=== PATIENT | male | born 1980 | race Caucasian/White ===

== ENCOUNTER 2017-06-28 00:44 | Inpatient (IN) | payer MEDICAID ==
--- NOTE | 2017-06-28 01:26 | ED Physician Chart ---
ED Chief Complaint/HPI - Patient Information Date Seen:: 06/28/17 Time Seen:: 01:00 Chief Complaint:: abd pain History of Present Illness:: 36 yr old male with epigastric pain moderate sharp sine yest no n,v,d,or fever no triggers or aggravating factors Allergies:: Allergies Allergy/AdvReac Type Severity Reaction Status Date / Time No Known Allergies Allergy Verified 06/28/17 00:58 Vitals:: Vital Signs - 8 hr 06/28/17 00:46 Temp 97.8 F HR 104 RR 18 BP 141/78 O2 Sat % 97 ED Review of Systems - Review of Systems General/Constitutional: No fever Skin: No skin lesions Head: No headache Eyes: No loss of vision ENT: No earache Neck: No neck pain Cardio Vascular: No chest pain Pulmonary: No SOB GI: No vomiting G/U: No dysuria Musculoskeletal: No muscle pain Endocrine: No polyuria Psychiatric: No prior psych history Hematopoietic: No bruising, No lymphadenopathy Allergic/Immuno: No urticaria Neurological: No syncope ED Past Medical History - Past Medical History Past Medical History: No significant medical hx Family Medical History - Family Member Mother History Unknown: Yes ED Physical Exam - Physical Examination General/Constitutional: Well-developed, well-nourished Head: Atraumatic Eyes: Lids, conjuctiva normal Skin: Nl inspection ENMT: External ears, nose nl Neck: Nontender Respiratory: Nl effort/Exclusion Cardio Vascular: RRR GI: No organomegaly : No CVA tenderness Extremities: No tenderness or effusion Neuro/Psych: Alert/oriented Misc: Normal back ED Assessment - Assessment General Assessment: abd pain ED Septic Shock - . Is Septic Shock (SBP<90, OR Lactate>4 mmol\L) present?: No - <6hrs of presentation: Vital Signs: Vital Signs - 8 hr 06/28/17 00:46 Temp 97.8 F HR 104 RR 18 BP 141/78 O2 Sat % 97 ED Reassessment (Disposition) - Reassessment Reassessment Condition:: Improved - Diagnosis Diagnosis:: abd pain - Patient Disposition Discharge/Transfer:: Home
[2017-06-28 01:44] LABS: % BASOPHILS 0.2 % (0.0-2.0); % EOSINOPHILS 2.7 % (0.0-5.0); % LYMPHOCYTES 20.3 % (20.0-50.0); % MONOCYTES 13.2 % (2.0-10.0); % NEUTROPHILS 63.6 % (40.0-80.0); EOSINOPHILE ABSOLUTE 0.2 Th/cmm (0.1-0.4); HEMATOCRIT 35.5 % (41.0-60); HEMOGLOBIN 12.1 gm/dL (12-16); LYMPHOCYTE ABSOLUTE 1.2 Th/cmm (1.5-3.0); MEAN CELL VOLUME 89.6 fl (80-99); MEAN CORPUSCULAR HEMOGLOBIN 30.5 pg (26.0-30.0); MEAN PLATELET VOLUME 7.8 fl; MONOCYTE ABSOLUTE 0.8 Th/cmm (0.3-1.0); NEUTROPHILE ABSOLUTE 3.6 Th/cmm (1.8-8.0); PLATELET COUNT 240 Th/cmm (150-400); RED BLOOD COUNT 3.97 Mil/cmm (4.30-5.70); RED CELL DISTRIBUTION WIDTH 13.9 % (11.5-20.0); WHITE BLOOD COUNT 5.8 Th/cmm (4.8-10.8)
[2017-06-28 02:01] LABS: ALB/GLOB RATIO 1.1 (1.0-1.8); ALBUMIN 3.6 gm/dL (4.2-5.5); ALKALINE PHOSPHATASE 114 U/L (34-104); ANION GAP 11.7 (7.0-16.0); BILIRUBIN,TOTAL 0.4 mg/dL (0.3-1.0); BUN - UREA NITROGEN 15 mg/dL (7-25); CALCIUM SERUM 9.1 mg/dL (8.6-10.3); CARBON DIOXIDE 20.4 mEq/L (21.0-31.0); CHLORIDE 103 mEq/L (98-107); GFR AFRICAN-AMERICAN > 60.0 ml/min (>90); GFR NON AFRICAN-AMERICAN > 60.0 ml/min; GLUCOSE 119 mg/dL (70-105); POTASSIUM SERUM 4.1 mEq/L (3.5-5.1); SGOT 45 U/L (13-39); SGPT/ALT 76 U/L (7-52); SODIUM SERUM 131 mEq/L (136-145); TOTAL PROTEIN,SERUM 6.9 gm/dL (6.0-8.3)
[2017-06-28 02:28] LABS: URINE MICROSCOPIC INDICATED? YES; URINE SOURCE CLEAN C
[2017-06-28 03:25] LABS: URINE BILIRUBIN NEGATIVE (NEGATIVE); URINE BLOOD NEGATIVE (NEGATIVE); URINE GLUCOSE (UA) NEGATIVE (NEGATIVE); URINE KETONE NEGATIVE (NEGATIVE); URINE LEUKOCYTE ESTERASE NEGATIVE (NEGATIVE); URINE NITRATE NEGATIVE (NEGATIVE); URINE PH 6.5 (4.6 - 8.0); URINE PROTEIN NEGATIVE (NEGATIVE); URINE UROBILINOGEN 0.2 E.U./dL (0.2 - 1.0)
[2017-06-28 03:33] LABS: URINE CLARITY CLEAR (CLEAR); URINE COLOR YELLOW
[2017-06-28 03:34] LABS: URINE BACTERIA NONE SEEN /hpf (NONE SEEN); URINE EPITHELIAL CELLS NONE SEEN /lpf (FEW); URINE RBC NONE SEEN /hpf (0-5); URINE WBC NONE SEEN /hpf (0-5)
[2017-06-28 04:47] LABS: AMYLASE SERUM 34 U/L (29-103); LIPASE 15 U/L (11-82)
[2017-06-28 05:00] LABS: ACETAMINOPHEN < 10.0 ug/mL (10.0-30.0)
[2017-06-28 05:36] LABS: AMPHETAMINE URINE NEGATIVE (NEGATIVE); BARBITURATES URINE NEGATIVE (NEGATIVE); BENZODIAZEPINES QUAL URINE NEGATIVE (NEGATIVE); CANNABINOID THC NEGATIVE (NEGATIVE); COCAINE METABOLITE QUAL URINE NEGATIVE (NEGATIVE); METHADONE URINE NEGATIVE (NEGATIVE); METHAMPHETAMINES QUAL URINE NEGATIVE (NEGATIVE); OPIATES (MORPHINE) QUAL. URINE NEGATIVE (NEGATIVE); PHENCYCLIDINE (PCP) URINE NEGATIVE (NEGATIVE); TRICYCLICS (TCA) QUAL. URINE POSITIVE (NEGATIVE)
--- NOTE | 2017-06-28 09:04 | Diagnostic Imaging Report ---
Exam: CT examination abdomen pelvis. HISTORY: Abdominal pain. Total DLP equals 708 CTDI equals 13.7 Findings: Multiple contiguous thin section of the abdomen pelvis obtained from lower thorax to pubic symphysis without the administration of oral or intravenous contrast material, no prior studies available comparison. The study demonstrates normal aeration of lung parenchyma the bases. There is evidence of previous cholecystectomy. The liver and spleen intact. The pancreas is normal. The kidneys demonstrate no evidence of obstructive uropathy or nephrolithiasis. Large amount of fecal content is noted throughout the colon. The appendix is normal. The renal bladder is intact. Bony structures demonstrate no evidence for lytic or blastic changes. IMPRESSION: Essentially unremarkable examination of the abdomen pelvis, large amount of fecal content.
--- NOTE | 2017-06-28 10:55 | History and Physical ---
History of Present Illness - HPI Chief Complaint: Abdominal pain and suicidal ideas HPI: Patient refer that few days ago started with abdominal pain and suicidal ideas, reason why he came to ER. Vital Signs: Last Vital Signs Temp 97.0 F 06/28/17 02:05 Pulse 84 06/28/17 05:50 Resp 16 06/28/17 05:50 BP 113/66 06/28/17 05:50 Pulse Ox 98 06/28/17 03:56 Past Medical History Cardiovascular: Report: No Pertinent Hx Pulmonary: Report: No Pertinent Hx METAL BUMPER: Report: Other (Depression) GI: Report: Other (Abdominal pain) Psych: Report: Anxiety, Depression Musculoskeletal: Report: No Pertinent Hx Rheumatologic: Report: No pertinent Hx Infectious Disease: Report: No Pertinent Hx Renal/: Report: No Pertinent Hx Endocrine: Report: Other (Hx of testicular Ca.) Dermatology: Report: No Pertinent Hx - Past Surgical History Past Surgical History: Other (Testicle romoval) Family Medical History - Family Member Mother History Unknown: Yes Social History Smoke: No Alcohol: None Drugs: None Lives: With Family Domestic Violence: Negative - Medications Home Medications: Home Medication Medication Instructions Recorded Type Bupropion HCl [Wellbutrin Xl*] 300 mg PO DAILY 06/28/17 History - Allergies Allergies/Adverse Reactions: Allergies Allergy/AdvReac Type Severity Reaction Status Date / Time No Known Allergies Allergy Verified 06/28/17 00:58 Review of Systems - Review of Systems Constitutional: Report: Weakness Eyes: Report: No Significant ENT: Report: No Significant Respiratory: Report: No Significant Cardiovascular: Report: No Significant Gastrointestinal: Report: Other (Abdominal pain) Genitourinary: Report: No Significant Musculoskeletal: Report: No Significant Skin: Report: No Significant Neurological: Report: Weakness, Other (Depress) Physical Exam - Physical Exam HEENT: Report: Ears Nose Throat within normal limits Neck: Report: Within normal limits Cardiovascular Systems: Report: Regular, Rate and Rhythm Respiratory: Report: Breath Sounds are within normal limits Abdomen: Report: Tender to palpation Back: Report: Inspection of back is within normal limits. Extremities: Report: Non-tender to palpation. Skin: Report: Color of skin is within normal limits, Warm, Dry Neuro/Psych: Report: Depressed affect - Lab Results All Lab Results last 24 hours: Laboratory Results - last 24 hr 06/28/17 Unknown Amylase 34 Lipase 15 - Assessment Assessment: Patient is awake, calm oriented, He refer suicidal ideas. DX: Abdominal pain, Suicidal ideas. - Plan Plan: Abdominal CT is normal, Labs are normal. Patient in protonix and pain control. Consult with Psychiatry requested. Will continue to monitor.
[2017-06-28] MEDS: Sodium Chloride 0.9% 1,000 ML IV SCH (12:43)
[2017-06-29 05:18] LABS: % BASOPHILS 0.7 % (0.0-2.0); % EOSINOPHILS 2.4 % (0.0-5.0); % LYMPHOCYTES 18.8 % (20.0-50.0); % MONOCYTES 11.5 % (2.0-10.0); % NEUTROPHILS 66.6 % (40.0-80.0); BASOPHILE ABSOLUTE 0.1 Th/cumm (0-0.2); EOSINOPHILE ABSOLUTE 0.2 Th/cmm (0.1-0.4); HEMATOCRIT 35.1 % (41.0-60); HEMOGLOBIN 11.9 gm/dL (12-16); LYMPHOCYTE ABSOLUTE 1.5 Th/cmm (1.5-3.0); MEAN CELL VOLUME 90.6 fl (80-99); MEAN CORPUSCULAR HEMOGLOBIN 30.7 pg (26.0-30.0); MEAN CORPUSCULAR HGB CONC 33.9 pg (28.0-36.0); MEAN PLATELET VOLUME 7.4 fl; MONOCYTE ABSOLUTE 0.9 Th/cmm (0.3-1.0); NEUTROPHILE ABSOLUTE 5.5 Th/cmm (1.8-8.0); PLATELET COUNT 280 Th/cmm (150-400); RED BLOOD COUNT 3.87 Mil/cmm (4.30-5.70); WHITE BLOOD COUNT 8.2 Th/cmm (4.8-10.8)
[2017-06-29 05:34] LABS: ALB/GLOB RATIO 1.1 (1.0-1.8); ALBUMIN 3.4 gm/dL (4.2-5.5); ALKALINE PHOSPHATASE 96 U/L (34-104); ANION GAP 9.9 (7.0-16.0); BILIRUBIN,TOTAL 0.4 mg/dL (0.3-1.0); BUN - UREA NITROGEN 15 mg/dL (7-25); CALCIUM SERUM 8.9 mg/dL (8.6-10.3); CARBON DIOXIDE 24.9 mEq/L (21.0-31.0); CHLORIDE 106 mEq/L (98-107); CREATININE - SERUM 1.1 mg/dL (0.7-1.3); GFR AFRICAN-AMERICAN > 60.0 ml/min (>90); GFR NON AFRICAN-AMERICAN > 60.0 ml/min; GLUCOSE 124 mg/dL (70-105); MAGNESIUM 2.2 mg/dL (1.9-2.7); POTASSIUM SERUM 3.8 mEq/L (3.5-5.1); SGOT 21 U/L (13-39); SGPT/ALT 53 U/L (7-52); SODIUM SERUM 137 mEq/L (136-145); TOTAL PROTEIN,SERUM 6.5 gm/dL (6.0-8.3)
--- NOTE | 2017-06-29 09:55 | General Progress Note ---
Subjective - Review of Systems Service Date: 06/29/17 Subjective: I feel the same Objective - Results Result Diagrams: 06/29/17 04:55 06/29/17 04:55 Recent Labs: Laboratory Last Values WBC 8.2 Th/cmm (4.8-10.8) 06/29/17 04:55 RBC 3.87 Mil/cmm (4.30-5.70) L 06/29/17 04:55 Hgb 11.9 gm/dL (12-16) L 06/29/17 04:55 Hct 35.1 % (41.0-60) L 06/29/17 04:55 MCV 90.6 fl (80-99) 06/29/17 04:55 MCH 30.7 pg (26.0-30.0) H 06/29/17 04:55 MCHC Differential 33.9 pg (28.0-36.0) 06/29/17 04:55 RDW 14.0 % (11.5-20.0) 06/29/17 04:55 Plt Count 280 Th/cmm (150-400) 06/29/17 04:55 MPV 7.4 fl 06/29/17 04:55 Neutrophils % 66.6 % (40.0-80.0) 06/29/17 04:55 Lymphocytes % 18.8 % (20.0-50.0) L 06/29/17 04:55 Monocytes % 11.5 % (2.0-10.0) H 06/29/17 04:55 Eosinophils % 2.4 % (0.0-5.0) 06/29/17 04:55 Basophils % 0.7 % (0.0-2.0) 06/29/17 04:55 Sodium 137 mEq/L (136-145) 06/29/17 04:55 Potassium 3.8 mEq/L (3.5-5.1) 06/29/17 04:55 Chloride 106 mEq/L (98-107) 06/29/17 04:55 Carbon Dioxide 24.9 mEq/L (21.0-31.0) 06/29/17 04:55 Anion Gap 9.9 (7.0-16.0) 06/29/17 04:55 BUN 15 mg/dL (7-25) 06/29/17 04:55 Creatinine 1.1 mg/dL (0.7-1.3) 06/29/17 04:55 Est GFR ( Amer) > 60.0 ml/min (>90) 06/29/17 04:55 Est GFR (Non-Af Amer) > 60.0 ml/min 06/29/17 04:55 BUN/Creatinine Ratio 13.6 06/29/17 04:55 Glucose 124 mg/dL (70-105) H 06/29/17 04:55 Calcium 8.9 mg/dL (8.6-10.3) 06/29/17 04:55 Magnesium 2.2 mg/dL (1.9-2.7) 06/29/17 04:55 Total Bilirubin 0.4 mg/dL (0.3-1.0) 06/29/17 04:55 AST 21 U/L (13-39) 06/29/17 04:55 ALT 53 U/L (7-52) H 06/29/17 04:55 Alkaline Phosphatase 96 U/L (34-104) 06/29/17 04:55 Total Protein 6.5 gm/dL (6.0-8.3) 06/29/17 04:55 Albumin 3.4 gm/dL (4.2-5.5) L 06/29/17 04:55 Globulin 3.1 gm/dL 06/29/17 04:55 Albumin/Globulin Ratio 1.1 (1.0-1.8) 06/29/17 04:55 Amylase 34 U/L (29-103) 06/28/17 Unknown Lipase 15 U/L (11-82) 06/28/17 Unknown Urine Source CLEAN C 06/28/17 01:46 Urine Color YELLOW 06/28/17 01:46 Urine Clarity CLEAR (CLEAR) 06/28/17 01:46 Urine pH 6.5 (4.6 - 8.0) 06/28/17 01:46 Ur Specific [place] 1.010 (1.005-1.030) 06/28/17 01:46 Urine Protein NEGATIVE mg/dL (NEGATIVE) 06/28/17 01:46 Urine Glucose (UA) NEGATIVE mg/dL (NEGATIVE) 06/28/17 01:46 Urine Ketones NEGATIVE mg/dL (NEGATIVE) 06/28/17 01:46 Urine Blood NEGATIVE (NEGATIVE) 06/28/17 01:46 Urine Nitrate NEGATIVE (NEGATIVE) 06/28/17 01:46 Urine Bilirubin NEGATIVE (NEGATIVE) 06/28/17 01:46 Urine Urobilinogen 0.2 E.U./dL (0.2 - 1.0) 06/28/17 01:46 Ur Leukocyte Esterase NEGATIVE (NEGATIVE) 06/28/17 01:46 Urine RBC NONE SEEN /hpf (0-5) 06/28/17 01:46 Urine WBC NONE SEEN /hpf (0-5) 06/28/17 01:46 Ur Epithelial Cells NONE SEEN /lpf (FEW) 06/28/17 01:46 Urine Bacteria NONE SEEN /hpf (NONE SEEN) 06/28/17 01:46 Salicylates < 25.0 mg/L (30.0-100.0) L 06/28/17 04:25 Urine Opiates Screen NEGATIVE (NEGATIVE) 06/28/17 01:25 Urine Methadone Screen NEGATIVE (NEGATIVE) 06/28/17 01:25 Acetaminophen < 10.0 ug/mL (10.0-30.0) L 06/28/17 04:25 Ur Barbiturates Screen NEGATIVE (NEGATIVE) 06/28/17 01:25 Ur Tricyclics Screen POSITIVE (NEGATIVE) H 06/28/17 01:25 Ur Phencyclidine Scrn NEGATIVE (NEGATIVE) 06/28/17 01:25 Amphetamines Screen NEGATIVE (NEGATIVE) 06/28/17 01:25 U Methamphetamines Scrn NEGATIVE (NEGATIVE) 06/28/17 01:25 U Benzodiazepines Scrn NEGATIVE (NEGATIVE) 06/28/17 01:25 U Cocaine Metab Screen NEGATIVE (NEGATIVE) 06/28/17 01:25 U Cannabinoids Screen NEGATIVE (NEGATIVE) 06/28/17 01:25 Ethyl Alcohol < 10 mg/dL (0-10) 06/28/17 04:25 - Physical Exam Vitals and I&O: Vital Signs Temp 97.7 F 06/29/17 00:00 Pulse 82 06/29/17 03:59 Resp 18 06/29/17 08:00 BP 121/76 06/29/17 03:59 Pulse Ox 100 06/29/17 03:59 Intake & Output 06/28/17 06/29/17 06/29/17 18:59 06:59 18:59 Intake Total 1000 Balance 1000 Weight (lbs) 108.862 kg 108.862 kg Intake: Oral 1000 Other: # Voids 3 Weight Source Patient stated Estimated Active Medications: Current Medications Sodium Chloride (Nacl 0.9%) 1,000 mls @ 100 mls/hr IV .Q10H [facility] Stop: 08/27/17 07:14 Last Admin: 06/28/17 12:43 Dose: 100 mls/hr Ketorolac Tromethamine (Toradol) 60 mg IM Q6HR PRN PRN Reason: Pain (Severe) Stop: 08/27/17 11:03 Pantoprazole Sodium (Protonix) 40 mg IVP DAILY [place] Stop: 08/27/17 08:59 Last Admin: 06/29/17 09:11 Dose: 40 mg General: Alert, Oriented x3, No acute distress HEENT: Atraumatic, PERRLA Neck: Supple Cardiovascular: Regular rate Lungs: Clear to auscultation Abdomen: Bowel sounds, Soft Extremities: Other (No edema) Neurological: Normal gait Skin: Rash Psych/Mental Status: Other (Patient seems depress) Assessment/Plan - Assessment Assessment: Patient is awake, calm oriented, He continue with suicidal ideas. DX: Abdominal pain, Suicidal ideas. - Plan Plan: Abdominal CT is normal, Labs are normal. Patient in protonix and pain control. Consult with Psychiatry requested. Will continue to monitor.
--- NOTE | 2017-06-29 15:15 | Consultation ---
DATE OF CONSULTATION: 06/29/2017 REQUESTING PHYSICIAN: Preston Calvo M.D. REASON FOR CONSULTATION: Depression. HISTORY OF PRESENT ILLNESS: This patient is a 36-year-old male, currently homeless. Information obtained by directly interviewing the patient as well as reviewing the admission papers and they are reliable. The patient came in here because of the abdominal pain and psychiatric consultation is called to address the issue of the depression. Chart is reviewed. The patient is interviewed. The patient is mentioning that he has been going to the ____ to take his medications. The patient is currently on 150 mg twice a day of the Wellbutrin and also tells me that he has been getting the 50 mg of the Seroquel. The patient is stating that he has been taking the medication for a while, but for the past couple of days, he has been feeling depressed because of the home situation. The patient is stating that he has no place to return to and could not figure it out what is happening with his life and he also tells me that he has worked for 8 years. SUBSTANCE ABUSE HISTORY: The patient denies use of any drugs or alcohol at this time. PAST PSYCHIATRIC HISTORY: The patient is reporting that he was at one time at [facility]. MEDICAL HISTORY: The patient is stating that he came for abdominal pain that is taken care of and he states that he needs to talk to the social media sr strategy manager to see if he can get out of here." LEGAL PROBLEMS: None at this time. STRENGTHS AND ASSETS: The patient is motivated. MENTAL EXAMINATION: The patient is a 36-year-old well built, superficially cooperative. Eye contact is poor. Mood is noted to be irritable. Affect is constricted. Insight and judgment at this time are noted to be fair. Impulse control is also noted to be fair. The patient is not suicidal or homicidal. The patient denies auditory hallucinations or delusions are noted. The patient is stating that he is motivated to seek treatment on an outpatient basis. DIAGNOSTIC IMPRESSION: Major depressive disorder, recurrent and moderate. PLAN: To continue the patient with Wellbutrin and Seroquel and request the geriatric social work professor to help the patient with the placement. Since the patient is not presenting with any suicidal or homicidal ideation, there is no need for any acute psychiatric intervention at this time. JOB# [id number]
[2017-06-29] MEDS: Sodium Chloride 0.9% 1,000 ML IV SCH (17:22)
[2017-06-30 05:33] LABS: % BASOPHILS 0.4 % (0.0-2.0); % EOSINOPHILS 2.6 % (0.0-5.0); % LYMPHOCYTES 26.3 % (20.0-50.0); % MONOCYTES 10.3 % (2.0-10.0); % NEUTROPHILS 60.4 % (40.0-80.0); EOSINOPHILE ABSOLUTE 0.2 Th/cmm (0.1-0.4); HEMATOCRIT 38.2 % (41.0-60); HEMOGLOBIN 13.4 gm/dL (12-16); LYMPHOCYTE ABSOLUTE 1.8 Th/cmm (1.5-3.0); MEAN CELL VOLUME 89.2 fl (80-99); MEAN CORPUSCULAR HEMOGLOBIN 31.2 pg (26.0-30.0); MEAN PLATELET VOLUME 7.4 fl; MONOCYTE ABSOLUTE 0.7 Th/cmm (0.3-1.0); NEUTROPHILE ABSOLUTE 4.2 Th/cmm (1.8-8.0); PLATELET COUNT 314 Th/cmm (150-400); RED BLOOD COUNT 4.29 Mil/cmm (4.30-5.70); RED CELL DISTRIBUTION WIDTH 13.5 % (11.5-20.0); WHITE BLOOD COUNT 6.9 Th/cmm (4.8-10.8)
[2017-06-30 06:05] LABS: ALB/GLOB RATIO 1.1 (1.0-1.8); ALBUMIN 3.9 gm/dL (4.2-5.5); ALKALINE PHOSPHATASE 106 U/L (34-104); ANION GAP 10.9 (7.0-16.0); BILIRUBIN,TOTAL 0.5 mg/dL (0.3-1.0); BUN - UREA NITROGEN 16 mg/dL (7-25); CALCIUM SERUM 9.4 mg/dL (8.6-10.3); CARBON DIOXIDE 26.8 mEq/L (21.0-31.0); CHLORIDE 104 mEq/L (98-107); CREATININE - SERUM 1.1 mg/dL (0.7-1.3); GFR AFRICAN-AMERICAN > 60.0 ml/min (>90); GFR NON AFRICAN-AMERICAN > 60.0 ml/min; GLUCOSE 92 mg/dL (70-105); POTASSIUM SERUM 3.7 mEq/L (3.5-5.1); SGOT 18 U/L (13-39); SGPT/ALT 45 U/L (7-52); SODIUM SERUM 138 mEq/L (136-145); TOTAL PROTEIN,SERUM 7.4 gm/dL (6.0-8.3)
--- NOTE | 2017-06-30 08:38 | General Progress Note ---
Subjective - Review of Systems Service Date: 06/30/16 Subjective: I feel the same. Objective - Results Result Diagrams: 06/30/17 05:20 06/30/17 05:20 Recent Labs: Laboratory Last Values WBC 6.9 Th/cmm (4.8-10.8) 06/30/17 05:20 RBC 4.29 Mil/cmm (4.30-5.70) L 06/30/17 05:20 Hgb 13.4 gm/dL (12-16) 06/30/17 05:20 Hct 38.2 % (41.0-60) L 06/30/17 05:20 MCV 89.2 fl (80-99) 06/30/17 05:20 MCH 31.2 pg (26.0-30.0) H 06/30/17 05:20 MCHC Differential 35.0 pg (28.0-36.0) 06/30/17 05:20 RDW 13.5 % (11.5-20.0) 06/30/17 05:20 Plt Count 314 Th/cmm (150-400) 06/30/17 05:20 MPV 7.4 fl 06/30/17 05:20 Neutrophils % 60.4 % (40.0-80.0) 06/30/17 05:20 Lymphocytes % 26.3 % (20.0-50.0) 06/30/17 05:20 Monocytes % 10.3 % (2.0-10.0) H 06/30/17 05:20 Eosinophils % 2.6 % (0.0-5.0) 06/30/17 05:20 Basophils % 0.4 % (0.0-2.0) 06/30/17 05:20 Sodium 138 mEq/L (136-145) 06/30/17 05:20 Potassium 3.7 mEq/L (3.5-5.1) 06/30/17 05:20 Chloride 104 mEq/L (98-107) 06/30/17 05:20 Carbon Dioxide 26.8 mEq/L (21.0-31.0) 06/30/17 05:20 Anion Gap 10.9 (7.0-16.0) 06/30/17 05:20 BUN 16 mg/dL (7-25) 06/30/17 05:20 Creatinine 1.1 mg/dL (0.7-1.3) 06/30/17 05:20 Est GFR ( Amer) > 60.0 ml/min (>90) 06/30/17 05:20 Est GFR (Non-Af Amer) > 60.0 ml/min 06/30/17 05:20 BUN/Creatinine Ratio 14.5 06/30/17 05:20 Glucose 92 mg/dL (70-105) 06/30/17 05:20 Calcium 9.4 mg/dL (8.6-10.3) 06/30/17 05:20 Magnesium 2.2 mg/dL (1.9-2.7) 06/29/17 04:55 Total Bilirubin 0.5 mg/dL (0.3-1.0) 06/30/17 05:20 AST 18 U/L (13-39) 06/30/17 05:20 ALT 45 U/L (7-52) 06/30/17 05:20 Alkaline Phosphatase 106 U/L (34-104) H 06/30/17 05:20 Total Protein 7.4 gm/dL (6.0-8.3) 06/30/17 05:20 Albumin 3.9 gm/dL (4.2-5.5) L 06/30/17 05:20 Globulin 3.5 gm/dL 06/30/17 05:20 Albumin/Globulin Ratio 1.1 (1.0-1.8) 06/30/17 05:20 Amylase 34 U/L (29-103) 06/28/17 Unknown Lipase 15 U/L (11-82) 06/28/17 Unknown Urine Source CLEAN C 06/28/17 01:46 Urine Color YELLOW 06/28/17 01:46 Urine Clarity CLEAR (CLEAR) 06/28/17 01:46 Urine pH 6.5 (4.6 - 8.0) 06/28/17 01:46 Ur Specific [place] 1.010 (1.005-1.030) 06/28/17 01:46 Urine Protein NEGATIVE mg/dL (NEGATIVE) 06/28/17 01:46 Urine Glucose (UA) NEGATIVE mg/dL (NEGATIVE) 06/28/17 01:46 Urine Ketones NEGATIVE mg/dL (NEGATIVE) 06/28/17 01:46 Urine Blood NEGATIVE (NEGATIVE) 06/28/17 01:46 Urine Nitrate NEGATIVE (NEGATIVE) 06/28/17 01:46 Urine Bilirubin NEGATIVE (NEGATIVE) 06/28/17 01:46 Urine Urobilinogen 0.2 E.U./dL (0.2 - 1.0) 06/28/17 01:46 Ur Leukocyte Esterase NEGATIVE (NEGATIVE) 06/28/17 01:46 Urine RBC NONE SEEN /hpf (0-5) 06/28/17 01:46 Urine WBC NONE SEEN /hpf (0-5) 06/28/17 01:46 Ur Epithelial Cells NONE SEEN /lpf (FEW) 06/28/17 01:46 Urine Bacteria NONE SEEN /hpf (NONE SEEN) 06/28/17 01:46 Salicylates < 25.0 mg/L (30.0-100.0) L 06/28/17 04:25 Urine Opiates Screen NEGATIVE (NEGATIVE) 06/28/17 01:25 Urine Methadone Screen NEGATIVE (NEGATIVE) 06/28/17 01:25 Acetaminophen < 10.0 ug/mL (10.0-30.0) L 06/28/17 04:25 Ur Barbiturates Screen NEGATIVE (NEGATIVE) 06/28/17 01:25 Ur Tricyclics Screen POSITIVE (NEGATIVE) H 06/28/17 01:25 Ur Phencyclidine Scrn NEGATIVE (NEGATIVE) 06/28/17 01:25 Amphetamines Screen NEGATIVE (NEGATIVE) 06/28/17 01:25 U Methamphetamines Scrn NEGATIVE (NEGATIVE) 06/28/17 01:25 U Benzodiazepines Scrn NEGATIVE (NEGATIVE) 06/28/17 01:25 U Cocaine Metab Screen NEGATIVE (NEGATIVE) 06/28/17 01:25 U Cannabinoids Screen NEGATIVE (NEGATIVE) 06/28/17 01:25 Ethyl Alcohol < 10 mg/dL (0-10) 06/28/17 04:25 - Physical Exam Vitals and I&O: Vital Signs Temp 98.6 F 06/30/17 04:00 Pulse 73 06/30/17 04:00 Resp 18 06/30/17 04:00 BP 108/77 06/30/17 04:00 Pulse Ox 95 06/30/17 04:00 Intake & Output 06/29/17 06/30/17 06/30/17 18:59 06:59 18:59 Intake Total 550 Balance 550 Weight (lbs) 108.862 kg 108.862 kg Intake: Oral 550 Other: # Voids 2 Weight Source Estimated Estimated Active Medications: Current Medications Bupropion HCl (Wellbutrin Sr) 150 mg PO BID [place] PRN Reason: Protocol Stop: 08/28/17 16:59 Ketorolac Tromethamine (Toradol) 60 mg IM Q6HR PRN PRN Reason: Pain (Severe) Stop: 08/27/17 11:03 Pantoprazole Sodium (Protonix) 40 mg IVP DAILY [place] Stop: 08/27/17 08:59 Last Admin: 06/29/17 09:11 Dose: 40 mg Quetiapine Fumarate (Seroquel) 50 mg PO HS [place] PRN Reason: Protocol Stop: 08/28/17 20:59 General: Alert, Oriented x3, No acute distress HEENT: Atraumatic, PERRLA Neck: Supple Cardiovascular: Regular rate Lungs: Clear to auscultation Abdomen: Bowel sounds, Soft Extremities: Other (No edema) Neurological: Normal gait Skin: Rash Psych/Mental Status: Other (Patient seems depress) Assessment/Plan - Assessment Assessment: Patient is awake, calm oriented, He denied suicidal ideas. DX: Abdominal pain, Depression - Plan Plan: Abdominal CT is normal, Labs are normal. Patient in protonix and pain control. Already seen by Psychiatry. Will continue to monitor.
[2017-06-30] MEDS: Pantoprazole 40 mg EC Tab PO SCH (09:11)
[2017-07-01] MEDS: Pantoprazole 40 mg EC Tab PO SCH (06:48)
--- NOTE | 2017-07-01 08:24 | General Progress Note ---
Subjective - Review of Systems Service Date: 07/01/17 Subjective: I feel ok Objective - Results Result Diagrams: 06/30/17 05:20 06/30/17 05:20 Recent Labs: Laboratory Last Values WBC 6.9 Th/cmm (4.8-10.8) 06/30/17 05:20 RBC 4.29 Mil/cmm (4.30-5.70) L 06/30/17 05:20 Hgb 13.4 gm/dL (12-16) 06/30/17 05:20 Hct 38.2 % (41.0-60) L 06/30/17 05:20 MCV 89.2 fl (80-99) 06/30/17 05:20 MCH 31.2 pg (26.0-30.0) H 06/30/17 05:20 MCHC Differential 35.0 pg (28.0-36.0) 06/30/17 05:20 RDW 13.5 % (11.5-20.0) 06/30/17 05:20 Plt Count 314 Th/cmm (150-400) 06/30/17 05:20 MPV 7.4 fl 06/30/17 05:20 Neutrophils % 60.4 % (40.0-80.0) 06/30/17 05:20 Lymphocytes % 26.3 % (20.0-50.0) 06/30/17 05:20 Monocytes % 10.3 % (2.0-10.0) H 06/30/17 05:20 Eosinophils % 2.6 % (0.0-5.0) 06/30/17 05:20 Basophils % 0.4 % (0.0-2.0) 06/30/17 05:20 Sodium 138 mEq/L (136-145) 06/30/17 05:20 Potassium 3.7 mEq/L (3.5-5.1) 06/30/17 05:20 Chloride 104 mEq/L (98-107) 06/30/17 05:20 Carbon Dioxide 26.8 mEq/L (21.0-31.0) 06/30/17 05:20 Anion Gap 10.9 (7.0-16.0) 06/30/17 05:20 BUN 16 mg/dL (7-25) 06/30/17 05:20 Creatinine 1.1 mg/dL (0.7-1.3) 06/30/17 05:20 Est GFR ( Amer) > 60.0 ml/min (>90) 06/30/17 05:20 Est GFR (Non-Af Amer) > 60.0 ml/min 06/30/17 05:20 BUN/Creatinine Ratio 14.5 06/30/17 05:20 Glucose 92 mg/dL (70-105) 06/30/17 05:20 Calcium 9.4 mg/dL (8.6-10.3) 06/30/17 05:20 Magnesium 2.2 mg/dL (1.9-2.7) 06/29/17 04:55 Total Bilirubin 0.5 mg/dL (0.3-1.0) 06/30/17 05:20 AST 18 U/L (13-39) 06/30/17 05:20 ALT 45 U/L (7-52) 06/30/17 05:20 Alkaline Phosphatase 106 U/L (34-104) H 06/30/17 05:20 Total Protein 7.4 gm/dL (6.0-8.3) 06/30/17 05:20 Albumin 3.9 gm/dL (4.2-5.5) L 06/30/17 05:20 Globulin 3.5 gm/dL 06/30/17 05:20 Albumin/Globulin Ratio 1.1 (1.0-1.8) 06/30/17 05:20 Amylase 34 U/L (29-103) 06/28/17 Unknown Lipase 15 U/L (11-82) 06/28/17 Unknown Urine Source CLEAN C 06/28/17 01:46 Urine Color YELLOW 06/28/17 01:46 Urine Clarity CLEAR (CLEAR) 06/28/17 01:46 Urine pH 6.5 (4.6 - 8.0) 06/28/17 01:46 Ur Specific [place] 1.010 (1.005-1.030) 06/28/17 01:46 Urine Protein NEGATIVE mg/dL (NEGATIVE) 06/28/17 01:46 Urine Glucose (UA) NEGATIVE mg/dL (NEGATIVE) 06/28/17 01:46 Urine Ketones NEGATIVE mg/dL (NEGATIVE) 06/28/17 01:46 Urine Blood NEGATIVE (NEGATIVE) 06/28/17 01:46 Urine Nitrate NEGATIVE (NEGATIVE) 06/28/17 01:46 Urine Bilirubin NEGATIVE (NEGATIVE) 06/28/17 01:46 Urine Urobilinogen 0.2 E.U./dL (0.2 - 1.0) 06/28/17 01:46 Ur Leukocyte Esterase NEGATIVE (NEGATIVE) 06/28/17 01:46 Urine RBC NONE SEEN /hpf (0-5) 06/28/17 01:46 Urine WBC NONE SEEN /hpf (0-5) 06/28/17 01:46 Ur Epithelial Cells NONE SEEN /lpf (FEW) 06/28/17 01:46 Urine Bacteria NONE SEEN /hpf (NONE SEEN) 06/28/17 01:46 Salicylates < 25.0 mg/L (30.0-100.0) L 06/28/17 04:25 Urine Opiates Screen NEGATIVE (NEGATIVE) 06/28/17 01:25 Urine Methadone Screen NEGATIVE (NEGATIVE) 06/28/17 01:25 Acetaminophen < 10.0 ug/mL (10.0-30.0) L 06/28/17 04:25 Ur Barbiturates Screen NEGATIVE (NEGATIVE) 06/28/17 01:25 Ur Tricyclics Screen POSITIVE (NEGATIVE) H 06/28/17 01:25 Ur Phencyclidine Scrn NEGATIVE (NEGATIVE) 06/28/17 01:25 Amphetamines Screen NEGATIVE (NEGATIVE) 06/28/17 01:25 U Methamphetamines Scrn NEGATIVE (NEGATIVE) 06/28/17 01:25 U Benzodiazepines Scrn NEGATIVE (NEGATIVE) 06/28/17 01:25 U Cocaine Metab Screen NEGATIVE (NEGATIVE) 06/28/17 01:25 U Cannabinoids Screen NEGATIVE (NEGATIVE) 06/28/17 01:25 Ethyl Alcohol < 10 mg/dL (0-10) 06/28/17 04:25 - Physical Exam Vitals and I&O: Vital Signs Temp 98.5 F 07/01/17 04:00 Pulse 67 07/01/17 04:00 Resp 19 07/01/17 04:00 BP 100/58 07/01/17 04:00 Pulse Ox 97 07/01/17 04:00 Intake & Output 06/30/17 07/01/17 07/01/17 18:59 06:59 18:59 Intake Total 100 400 Output Total 200 Balance -100 400 Weight (lbs) 108.862 kg 106.141 kg Intake: Oral 100 400 Output: Urine 200 Other: # Voids 2 # Bowel Movements 0 Stool Characteristics Soft Weight Source Estimated Bedscale Active Medications: Current Medications Acetaminophen (Tylenol) 650 mg PO Q6H PRN PRN Reason: Pain or Fever >101 Stop: 08/30/17 08:14 Bupropion HCl (Wellbutrin Sr) 150 mg PO BID [place] PRN Reason: Protocol Stop: 08/28/17 16:59 Pantoprazole Sodium (Protonix) 40 mg PO QDAC [facility] Stop: 08/29/17 08:59 Last Admin: 07/01/17 06:48 Dose: 40 mg Quetiapine Fumarate (Seroquel) 50 mg PO HS [place] PRN Reason: Protocol Stop: 08/28/17 20:59 Last Admin: 06/30/17 21:31 Dose: 50 mg General: Alert, Oriented x3, No acute distress HEENT: Atraumatic, PERRLA Neck: Supple Cardiovascular: Regular rate Lungs: Clear to auscultation Abdomen: Bowel sounds, Soft Extremities: Other (No edema) Neurological: Normal gait Skin: Rash Psych/Mental Status: Other (Patient seems depress) Assessment/Plan - Assessment Assessment: Patient is awake, calm oriented, He denied suicidal ideas. DX: Abdominal pain, Depression - Plan Plan: Abdominal CT is normal, Labs are normal. Patient in protonix and pain control. Already seen by Psychiatry. Awaitting placement. Will continue to monitor.
--- NOTE | 2017-07-02 09:05 | Discharge Summary ---
General Discharge Summary - Discharge Summary Date of Admission: 06/28/17 Admitting Diagnosis: Abdominal pain, Suicidal Ideas Discharge Date: 07/01/17 Discharge Diagnosis: Abdominal pain, Suicidal Ideas, depression Hospital Course: Patient had pain control, Psychotropic meds, he was seen by Psychiatry Treatment: Pain control, psychotropic meds, Patient was seen by psychiatry, patient was transfered to a Psychiatric hospital. Disposition: Other Care (other hosp) Home Medications: Home Medication Medication Instructions Recorded Type Bupropion HCl [Wellbutrin Xl*] 300 mg PO DAILY 06/28/17 History Acetaminophen [Tylenol] 650 mg PO Q6H PRN tab 07/01/17 Rx Ibuprofen [Motrin*] 800 mg PO Q8H PRN tab 07/01/17 Rx Pantoprazole [Protonix] 40 mg PO QDAC ect 07/01/17 Rx QUEtiapine Fumarate [SEROquel] 50 mg PO HS tab 07/01/17 Rx buPROPion SR [Wellbutrin Sr] [address] 07/01/17 Rx Activity: Unrestricted Discharge Diet: Regular Consults and Follow-Up: [facility] [Other] not on staff,PCP is [Primary Care Provider] - Instructions: Abdominal Pain, [id number]
== END 2017-07-01 19:40 | disposition short-term general hospital (02) | DRG 251 ==
LOC: ER 00:44 → MSI 07:18
PROVIDERS: ADMIT General Practice; ATTEND General Practice
DX: R10.9 Unspecified abdominal pain (principal); F33.9 Major depressive disorder, recurrent, unspecified; R45.851 Suicidal ideations; F41.9 Anxiety disorder, unspecified; Z85.47 Personal history of malignant neoplasm of testis; Z79.899 Other long term (current) drug therapy; Z59.0 Homelessness
CPT/HCPCS: 36415-UA; 80053-TC; 80307; 80320-TC; 80329-TC; 81001-TC; 82150-TC; 83690-TC; 83735-TC; 85025-TC; 96374; C9113; J1885; J7030; Z7610